=== PATIENT | male | born 1980 | race Caucasian/White ===

== ENCOUNTER 2016-11-21 14:41 | Emergency (ER) | payer OTHER ==
[~2016-11-21] VITALS: Ht 175.3 cm; Wt 80.1 kg
[~2016-11-21 14:41] MED LIST: IBUP600T44 PO; LISI10TA PO; OXYC1TAB3 PO
[2016-11-21 14:44] VITALS: TEMP 36.9; Ht 175.3 cm; Wt 80.1 kg
--- NOTE | 2016-11-21 15:46 | DIAGNOSTIC IMAGING REPORT ---
RIGHT SHOULDER 3 VIEWS CLINICAL HISTORY: Fall with right shoulder pain. FINDINGS: 3 views of the right shoulder are obtained. No prior studies are available for comparison at the time of dictation. The skeletal structures are well mineralized. No fracture or dislocation is seen. The glenohumeral and acromioclavicular joints appear preserved. The overlying soft tissues are within normal limits. The imaged right upper lobe lung parenchyma appears clear. IMPRESSION: No acute bony abnormality is seen in the right shoulder. Electronically signed by: Saroj Gauthier M.D. 11/21/2016 3:44 PM Dictated Date/Time: 11/21/2016 3:43 PM
[2016-11-21] MEDS ORDERED: TRAM-10 PO (16:05)
--- NOTE | 2016-11-21 16:06 | EMERGENCY ROOM VISIT NOTE ---
ED Visit Note First contact with patient: 14:57 Chief Complaint: RIGHT Shoulder Pain History of Present Illness: Patient is a 36 year-old who presents to the emergency department today for evaluation of his RIGHT shoulder injury. He reports that yesterday while at home he fell off of a small 1 foot high stool landing on the lateral aspect of the RIGHT shoulder. He denies striking his head or losing consciousness. He reports persistent pain to the lateral aspect of the shoulder. He rates his current discomfort as a 7/10. He denies any numbness or weakness into the distal extremity. He reports no history of shoulder pain or fracture. Patient denies any associated headaches, neck pain, elbow pain, or wrist pain. Medications: Reviewed and discussed with the patient. Allergies: No known allergies. PMH: No pertinent past medical history. SHx: Patient is a 36-year-old male who lives with family. ROS: All pertinent positive and negative review of systems are appropriately documented in the History of Present Illness. Physical Exam: VITAL SIGNS - Vital signs and nursing notes were reviewed. GENERAL - 36-year-old male appearing his stated age and in noticeable discomfort throughout the exam. NECK - FROM of the cervical spine. No spinous process or paraspinal muscle tenderness to palpation. No nuchal rigidity. LUNGS - Chest wall symmetric without accessory muscle use, intercostals retractions, or central cyanosis. Normal vesicular breath sounds CTA B/L. No wheezes, rales, or rhonchi appreciated. CARDIAC - RRR with S1/S2. No murmur, rubs, or gallops appreciated. MUSCULOSKELETAL - Active ROM of the RIGHT shoulder was limited in all directions. 6 of abduction. No step-off deformities of the clavicle were palpable. Subjective tenderness over the AC joint with palpation. Subjective tenderness to palpation at the bicipital insertion. No tenderness to palpation over the deltoid. NEUROLOGIC - SENSORY: Spinothalamic tract was found to be intact with ability to discriminate sharp versus dull sensation at the level of the RIGHT side of the neck down to the fingertips. No sensory deficits of the dorsal column were appreciated utilizing light touch for evaluation. VASCULAR - Capillary refill was brisk. +3/5 radial pulse palpated. IMAGING: RIGHT SHOULDER 3 VIEWS CLINICAL HISTORY: Fall with right shoulder pain. FINDINGS: 3 views of the right shoulder are obtained. No prior studies are available for comparison at the time of dictation. The skeletal structures are well mineralized. No fracture or dislocation is seen. The glenohumeral and acromioclavicular joints appear preserved. The overlying soft tissues are within normal limits. The imaged right upper lobe lung parenchyma appears clear. IMPRESSION: No acute bony abnormality is seen in the right shoulder. ED Course: Patient was seen and evaluated by myself. Patient was provided an ice pack for comfort. X-ray was obtained of the affected shoulder. Imaging results as above. Imaging results were reviewed with the patient who acknowledges understanding. He was provided an arm sling for comfort. He was provided Ultram for breakthrough pain at home. I did review the [place] drug monitoring program. I'm not comfortable I the patient and extended narcotic pain medication at this point. He was encouraged to follow-up with his orthopedist from today's visit. He was educated on worrisome symptoms for return visit to the emergency department. Patient discharged home in good condition. In the evaluation and treatment of this patient, the following differential diagnoses were considered: Shoulder Contusion, Shoulder Fracture, Shoulder Dislocation, Thoracic Outlet Syndrome, Adhesive Capsulitis, Rotator Cuff Tear, Proximal Clavicle Head Fracture, Apical Pneumonia, Pneumothorax, Hemothorax, or TB. Impression: RIGHT Shoulder Contusion, Fall From Stool Discharge Instructions: You have been treated in the Emergency Department for Shoulder Pain - Shoulder Contusion. You have been prescribed Ultram to be used for pain control. You cannot drive or consume alcohol while on this medicine. This medicine should only be used for pain that cannot be controlled with ywad-bxo-clvgbgn pain medicines. For pain control, you can use the following [id number]-[id number] medicines (if >12 yo): - Regular strength (325mg/tab) Tylenol (acetaminophen) 2 tabs every 4-6 hours as needed. Do not exceed 12 tablets in a 24 hour period. Avoid taking more than 4 grams (4000 mg) of Tylenol per day. This includes any other sources of acetaminophen you may take on a regular basis. - Regular strength (200 mg/tab) Advil (ibuprofen) 1-2 tabs every 4-6 hours as needed. Do not exceed a dose of 3200 mg per day. If this is a recent injury (<24 hrs), ice can be applied to the area of pain for the first 3 days to help decrease pain and inflammation. Return to the Emergency Department if your current symptoms worsen despite treatment course outlined above, or if you develop any of the following symptoms : intractable pain despite aforementioned treatment course or new onset of numbness or tingling of the arm. Problem List Medical Problems: (1) AA (alcohol abuse) Status: Chronic (2) Fibromyalgia Status: Chronic (3) Moderate recurrent major depression Status: Chronic (4) Tobacco abuse Status: Chronic Surgical Problems: (1) Hx of appendectomy Status: Chronic Current/Historical Medications Scheduled Escitalopram Oxalate (Lexapro), 20 MG PO DAILY Lisinopril (Prinivil), 10 MG PO DAILY Scheduled PRN Ibuprofen (Motrin), 600 MG PO Q6H PRN for Pain Tramadol (Ultram), 1-2 TAB PO Q4H PRN for Pain Allergies Coded Allergies: No Known Allergies (Unverified , 10/07/16) Vital Signs Date Time Temp Pulse Resp B/P Pulse Ox O2 Delivery O2 Flow Rate FiO2 11/21/16 16:24 82 20 144/80 97 11/21/16 14:44 36.9 95 18 131/80 97 Room Air Departure Information Impression Primary Impression: Contusion of shoulder, right Additional Impression: Fall involving stool as cause of accidental injury Dispostion Home / Self-Care Condition GOOD Prescriptions Tramadol (Ultram) 50 Mg Tab 1-2 TAB PO Q4H Y for Pain, #16 TAB For Initial Treatment Prov: Gonzalez Box, ARASELI 11/21/16 Referrals No Doctor, Assigned (PCP) Patient Instructions ED Contusion Shoulder, My [facility] [address] Additional Instructions You have been treated in the Emergency Department for Shoulder Pain - Shoulder Contusion. You have been prescribed Ultram to be used for pain control. You cannot drive or consume alcohol while on this medicine. This medicine should only be used for pain that cannot be controlled with varm-ryn-wjfmjuu pain medicines. For pain control, you can use the following uirp-zkf-zhniyrm medicines (if >12 yo): - Regular strength (325mg/tab) Tylenol (acetaminophen) 2 tabs every 4-6 hours as needed. Do not exceed 12 tablets in a 24 hour period. Avoid taking more than 4 grams (4000 mg) of Tylenol per day. This includes any other sources of acetaminophen you may take on a regular basis. - Regular strength (200 mg/tab) Advil (ibuprofen) 1-2 tabs every 4-6 hours as needed. Do not exceed a dose of 3200 mg per day. If this is a recent injury (<24 hrs), ice can be applied to the area of pain for the first 3 days to help decrease pain and inflammation. Return to the Emergency Department if your current symptoms worsen despite treatment course outlined above, or if you develop any of the following symptoms : intractable pain despite aforementioned treatment course or new onset of numbness or tingling of the arm. Problem Qualifiers
[2016-11-21 16:24] VITALS: BP 144/80; PULSE 82; O2SAT 97
[2016-11-21] MEDS ORDERED: ESCI1TAB10 PO (21:33)
== END 2016-11-21 16:29 | disposition home or self-care (01) ==
LOC: C.EDB 14:42 → C.EDD 16:29
DX: S40.011A Contusion of right shoulder, initial encounter (principal); W08.XXXA Fall from other furniture, initial encounter; F10.10 Alcohol abuse, uncomplicated; M79.7 Fibromyalgia; F32.1 Major depressive disorder, single episode, moderate; Z72.0 Tobacco use